=== PATIENT | male | born 1955 | race Caucasian/White ===

== ENCOUNTER → 2016-09-12 | Outpatient (CLI) | payer OTHER ==
--- NOTE | ~2016-09-12 | 2DMMODE ---
[facility] [place] [address] 2 D/M-MODE ECHOCARDIOGRAM Name: EUNTRANG HORACE [id number] Admission: 09/12/16 Attend Phys: Hong Ellison, Discharge: Date of : 59 Date of Service: 09/12/16 1547 Report #: [id number] THIS REPORT FOR: //name// APPROVED REPORT Study performed: 09/12/2016 12:56:23 EXAM: Comprehensive 2D, Doppler, and color-flow Echocardiogram Patient Location: Out-Patient Status: routine Other Information Study Quality: Adequate Indications Atrial Fibrillation Hx: Afib, cardioversion, HTN, HLP 2D Dimensions RVDd: 32.94 mm LVEF(%): 70.99 (>50%) IVSd: 11.03 (7-11mm) LVOT Diam: 21.88 (18-24mm) LVDd: 47.80 mm PWd: 11.37 (7-11mm) Ascending Ao: 35.44 (22-36mm) LVDs: 28.51 (25-40mm) Aortic Root: 38.31 mm De Leon's LVEF: 70.99 % Volumes Left Atrial Volume (Systole) Single Plane 4CH: 45.78 mL Single Plane 2CH: 52.10 mL LA ESV Index: 23.00 mL/m2 Aortic Valve AoV Peak Jas.: 1.38 m/s AO Peak Gr.: 7.70 mmHg LVOT Max P.93 mmHg LVOT Max V: 0.99 m/s SHAYE Vmax: 2.68 cm2 Mitral Valve MV Decel. Time: 189.98 ms MV E Max Jas.: 0.70 m/s IVRT: 64.59 ms Pulmonary Valve [facility] [place] [address] [place] [address] 2 D/M-MODE ECHOCARDIOGRAM Name: EUNTRANG HORACE Room #: REG [facility]#: [id number] Admission: 09/12/16 Attend Phys: Hong Ellison, Discharge: Date of : 59 Date of Service: 09/12/16 1547 Report #: [id number] PV Peak Jas.: 0.94 m/s PV Peak Gr.: 3.57 mmHg Tricuspid Valve TR Peak Jas.: 2.20 m/s RAP Estimate: 5.00 mmHg TR Peak Gr.: 19.46 mmHg PA Pressure: 24.00 mmHg Left Ventricle The left ventricle is normal size. There is normal LV segmental wall motion. There is normal left ventricular wall thickness. The left ventricular systolic function is normal. LVEF is 55-60%. This study is not technically sufficient to allow evaluation of the LV diastolic function due to atrial fibrillation. Right Ventricle The right ventricle is normal size. The right ventricular systolic function is normal. Atria The left atrium size is normal. The right atrium size is normal. Aortic Valve The aortic valve is normal in structure. No aortic regurgitation is present. There is no aortic valvular stenosis. Mitral Valve The mitral valve is normal in structure. Trace mitral regurgitation. Tricuspid Valve The tricuspid valve is normal in structure. There is mild to moderate tricuspid regurgitation. The right atrial pressure is estimated at 5 mmHg. Estimated PAP is 24mmHg. Pulmonic Valve Pulmonic valve is not well visualized. Trace pulmonic regurgitation. Great Vessels Aortic root measures at the upper limits of normal. The ascending aorta is normal in size. IVC is normal in size and collapses >50% with inspiration. Pericardium There is no pericardial effusion. [facility] [address] [place] [address] 2 D/M-MODE ECHOCARDIOGRAM Name: TRAGN HAQN [facility]: [facility] [id number] Admission: 09/12/16 Attend Phys: Hong Ellison, Discharge: Date of : 59 Date of Service: 09/12/16 1547 Report #: [id number] <Conclusion> The left ventricular systolic function is normal. LVEF is 55-60%. There is normal LV segmental wall motion. Structural valve disease was absent. No significant regurgitant or stenotic lesions Pulmonary artery pressure of 25mmHg There is no pericardial effusion. <ELECTRONICALLY SIGNED> By: Tristen Colon MD, [facility] 09/12/16 1547 1547 1547 Tristen Colon MD, [facility] /INF
== END ==
LOC: CV 12:41
DX: I48.91 Unspecified atrial fibrillation (principal); I10 Essential (primary) hypertension; E78.5 Hyperlipidemia, unspecified

== ENCOUNTER → 2018-10-15 | Outpatient (CLI) | payer OTHER ==
[~2018-10-15] MED LIST: FLECAINIDE ACET50 M1 PO; LIPITOR40 MG PO; TOPROL XL25 MG PO; XARELTO15 MG PO; XARELTO20 MG PO
[2018-10-15 07:38] VITALS: BP 152/91
--- NOTE | 2018-10-15 09:19 | TEE ---
[facility] [address] [address] TRANSESOPHAGEAL ECHOCARDIOGRAM Name: TRANG HAQ Room #: REG CL Gabino#: [id number] Admission: 10/15/18 Attend Phys: Tristen Colon, Discharge: Date of : 59 Date of Service: 10/15/18 0919 Report #: [id number] THIS REPORT FOR: //name// APPROVED REPORT Study performed: 10/15/2018 07:47:18 EXAM: Comprehensive 2D, Doppler, and color-flow Echocardiogram Patient Location: Out-Patient Room #: 9 BSA: 2.34 HR: 61 bpm BP: 152/91 mmHg Rhythm: Bradycardia Other Information Study Quality: Good Indications Atrial Fibrillation Echo Enhancing Agent Indication: Rule out Shunt Agent(s) / Amount(s) Used: Agitated Saline 7 cc Procedure After obtaining informed consent, patient underwent transesophageal echo in the [employer]. Type of Sedation : Conscious Sedation Sedation was achieved intravenously with: Versed (3 mg) Fentanyl (100 mcg) Transesophageal probe was inserted and advanced into esophagus without difficulty by Tristen Colon MD. Echo enhancement indication: R/O Septal defect. Echo enhancement agent administered: Agitated Saline The ENOC was performed without complications. Throughout the procedure, the blood pressure, pulse oximetry, cardiac rhythm, and rate were monitored. The patient tolerated the procedure without adverse effects. Recovery from conscious sedation was uneventful and vital signs were stable. Left Ventricle The left ventricle is normal size. There is normal LV segmental wall [facility] [address] [place] [address] TRANSESOPHAGEAL ECHOCARDIOGRAM Name: TRANG HAQ Room #: REG CL Natividad.#: [id number] Admission: 10/15/18 Attend Phys: Tristen Colon, Discharge: Date of : 59 Date of Service: 10/15/18 0919 Report #: [id number] motion. There is normal left ventricular wall thickness. Left ventricular systolic function is normal. The left ventricular ejection fraction is within the normal range. LVEF is 55-60%. Right Ventricle The right ventricle is normal size. The right ventricular systolic function is normal. Atria The left atrium size is mildly enlarged No thrombus is visualized in the left atrium or appendage. No shunting by contrast bubble injection The right atrium size is mildly enlarged Aortic Valve The aortic valve is normal in structure. No aortic regurgitation is present. There is no aortic valvular stenosis. Mitral Valve The mitral valve is normal in structure. Mild mitral regurgitation. No evidence of mitral valve stenosis. Tricuspid Valve The tricuspid valve is normal in structure. Mild tricuspid regurgitation. Pulmonic Valve The pulmonary valve is normal in structure. There is no pulmonic valvular regurgitation. Great Vessels The aortic root is normal in size. The ascending aorta is normal in size. IVC is normal in size and collapses >50% with inspiration. Pericardium There is no pericardial effusion. <Conclusion> Left ventricular systolic function is normal. LVEF is 55-60%. Both atria are mildly enlarged No thrombus is visualized in the left atrium or appendage. No shunting by contrast bubble injection The aortic valve is normal in structure. No aortic regurgitation or stenosis. The mitral valve is normal in structure. Mild mitral [facility] [address] [address] TRANSESOPHAGEAL ECHOCARDIOGRAM Name: TRANG HAQ Room #: REG CL [facility]#: [id number] Admission: 10/15/18 Attend Phys: Tristen Colon, Discharge: Date of : 59 Date of Service: 10/15/18918 Report #: [id number] regurgitation. There is no pericardial effusion. <ELECTRONICALLY SIGNED> By: Tristen Colon MD, [facility] 10/15/18918 8 8 Tristen Colon MD, FAC /INF
[2018-10-15 10:17] LABS: CALCIUM 8.9 mg/dL (8.5-10.1); POTASSIUM 4.6 mmol/L (3.5-5.1)
== END | disposition home or self-care (01) ==
LOC: CATH 06:09 → LABMALL 07:10 → CATH 07:10
PROVIDERS: Internal Medicine Cardiovascular Disease
DX: I34.0 Nonrheumatic mitral (valve) insufficiency (principal); I48.91 Unspecified atrial fibrillation; I10 Essential (primary) hypertension; E78.5 Hyperlipidemia, unspecified; Z79.01 Long term (current) use of anticoagulants; Z98.890 Other specified postprocedural states; Z79.899 Other long term (current) drug therapy

== ENCOUNTER 2018-10-19 00:34 | Observation (INO) | payer OTHER ==
[~2018-10-19] VITALS: Ht 182.9 cm; Wt 113.4 kg
--- NOTE | ~2018-10-19 | P ---
[facility] [place] [place] [address] PROCEDURE REPORT Name: TRANG HAQ [id number] Admission: 10/19/18 ������������������ Attend Phys: Suleiman Medel MD Discharge: ������������������ Date of : 59 Report #: [id number] THIS REPORT FOR: //name// CC: Jose Medel DATE OF SERVICE: 10/19/2018 PREOPERATIVE DIAGNOSIS: Atrial fibrillation. POSTOPERATIVE DIAGNOSIS: Atrial fibrillation. PROCEDURES PERFORMED: 1. Atrial fibrillation ablation, CPT code 60014. 2. 3D mapping, CPT code 82503. 3. Intracardiac echo, CPT code 82696. 4. Arterial line placement, CPT code 53163. ANESTHESIA: The patient underwent general anesthesia with no anesthesia related complications. They could not place an arterial line. Therefore, they asked me to place one. DESCRIPTION OF PROCEDURE: The patient underwent informed consent. We discussed the details of the procedure including the risks, which include but not limited to bleeding, vascular damage, cardiac perforation as well as stroke or ND. He understood these risks and was willing to proceed. The patient was brought to the EP Laboratory in a fasting and sedated state, prepped and draped in a sterile fashion. I obtained access to the right femoral vein x 3, placing an 8, 9 and 7-Maltese short sheath using the modified Seldinger technique. In the left femoral artery, I placed a 5-Maltese short sheath for arterial pressure monitoring. Next, under fluoroscopy, a decapolar catheter was placed easily in the coronary sinus and an ICE catheter was placed in the right atrium. The patient did have somewhat thickened interatrial septum, but there was a nice thinned area along the anterior interatrial septum. The patient was systemically heparinized and then a transseptal was performed using an SL1 sheath and a [place] needle. This was straightforward and then I exchanged over to the cryo sheath. Once in with a cryo sheath, I placed the Biosense Mares decapolar catheter into the left atrium and created a voltage map of the left atrium preablation. Next, I exchanged to the cryoballoon and we started by isolating the left superior pulmonary vein. The left superior pulmonary vein underwent a 4-minute freeze followed by a 300-second freeze. During the second freeze, the vein isolated within 180 seconds, but then reconnected after about a minute. I performed a third freeze that was 180 seconds in duration. The vein isolated within 30 seconds of this freeze. I then turned my attention to the left inferior pulmonary vein. This vein underwent a single 4-minute freeze as [address] [address] PROCEDURE REPORT Name: TRANG AHQN Room #: 202-P [facility] M.RTanya#: [id number] Admission: 10/19/18 ������������������ Attend Phys: Suleiman Medel MD Discharge: ������������������ Date of : 59 Report #: [id number] it isolated within 80 seconds. I then turned my attention to the right-sided veins. During isolation of the right-sided veins, I performed phrenic nerve pacing from the decapolar catheter placed at the subclavian level. I performed a 4-minute freeze in the right superior pulmonary vein and the vein isolated within 80 seconds. I then turned my attention to the right inferior pulmonary vein. This vein underwent a single 4-minute freeze as it isolated within 50 seconds. Post-ablation, I created a detailed 3D voltage map of the left atrium and this showed that we had created a wide circumferential ablation of the pulmonary veins. As such, a basic EP study was performed. Atrial burst pacing was performed and AV block was noted at 360 milliseconds. AV dodie ERP was noted at 320 milliseconds at a [address] cycle length. Next, isoproterenol infusion was started at 2 mcg per minute. AV block was noted to be less than 240 milliseconds, atrial ERP was noted at 220 milliseconds at a [address] cycle length. Aggressive atrial burst pacing and extrastimuli were delivered and there was no induction of any atrial fibrillation, SVT or atrial flutter. As such, the procedure was concluded. The patient received systemic protamine and once ACT was within acceptable range, all catheters and sheaths were pulled and hemostasis was obtained. Ojynjv-gk-aylom suture was performed at the right groin. CONCLUSIONS: 1. Successful AFib ablation with isolation of the 4 pulmonary veins. 2. Normal EP study with no inducible arrhythmias on or off isoproterenol. ��������������������������������������������� ���������������������������������������� By: ��������������������������������������������� 1331 0128 Suleiman Medel MD /nt
[2018-10-19 07:23] VITALS: BP 166/94
[2018-10-19] MEDS ORDERED: LIPITOR40 MG PO (07:26)
[2018-10-19] MEDS ORDERED: FLECAINIDE ACET50 M1 PO (07:27)
[2018-10-19] MEDS ORDERED: TOPROL XL25 MG PO (07:27)
[2018-10-19] MEDS ORDERED: XARELTO15 MG PO (07:28)
[2018-10-19 07:35] LABS: ABSOLUTE NEUTROPHILS 3.5 thou/uL (1.4-8.2); BASOPHILS 0.7 % (0.0-2.0); EOSINOPHILS 2.3 % (0.0-3.0); HEMATOCRIT 48.7 % (42.0-52.0); HEMOGLOBIN 16.3 gm/dL (14.0-18.0); LYMPHOCYTES 29.5 % (24.0-44.0); MCH 30.5 pg (26.0-34.0); MCHC 33.3 g/dL (28.0-37.0); MCV 91.4 fL (80.0-100.0); MONOCYTES 8.1 % (1.0-8.0); PLATELET COUNT 181 thou/uL (150-400); POLYS 59.4 % (36.0-66.0); RBC 5.33 mil/uL (4.50-6.00); RDW 13.4 % (10.5-14.5); WBC 5.9 thou/uL (4.0-11.0)
[2018-10-19 07:43] LABS: CALCIUM 7.8 mg/dL (8.5-10.1); CREATININE 1.2 mg/dL (0.7-1.3); POTASSIUM 3.7 mmol/L (3.5-5.1)
[2018-10-19 07:49] LABS: TOTAL BILIRUBIN 0.8 mg/dL (<0.1-1.0); TOTAL PROTEIN 7.4 g/dL (6.4-8.2)
[2018-10-19 08:06] LABS: APTT 30.1 Seconds (24.5-32.8); PROTIME 9.8 Seconds (9.3-11.4)
--- NOTE | 2018-10-19 16:53 | NUR ---
REPORT GIVEN TO ARISTEO CULVER AT 1623.
--- NOTE | 2018-10-19 18:45 | NUR ---
62YO MALE ADMITTED TO ROOM 202 FROM [employer]NAL [employer]. DRESSING TO R AND L GROIN, CDI, NO SIGN OF HEMATOMA. CATHETER DC'D, TOLERATED PROCEDURE WELL, 20G SL IN R HAND. NO COMPLAINTS OF PAIN, VSS, POST PROCEDURE VITALS TAKEN, WILL CONTINUE TO MONITOR
[2018-10-19 20:57] VITALS: BP 131/72
[2018-10-20 00:48] VITALS: BP 129/71
--- NOTE | 2018-10-20 04:29 | NUR ---
PT POST AFIB ABLATION A0 X 4. OFF BEDREST. ACCESS SITES; LEFT AND RIGHT GROIN CLEAN DRY AND INTACT. NO HEMATOMA NOTED. VITALS STABLE. NO C/O OF NAUSEA, VOMITING OF DIARREA. PT VOIDS IN TOILET. NO C/O URINARY DIFFICULTIES. REMAINS SR ON MONITOR.
[2018-10-20 05:18] VITALS: BP 130/71
[2018-10-20 07:17] VITALS: BP 140/81
[2018-10-20] MEDS ORDERED: XARELTO20 MG PO (08:22)
[2018-10-20] MEDS ORDERED: FLECAINIDE ACET50 M1 PO (08:25)
--- NOTE | 2018-10-20 09:05 | NUR ---
PATIENT CARE WAS ASSUMED AT 0715.PATIENT IS ALERT AND ORIENTED X4.PATIENT RESTING IN BED, WITH SPOUSE AT BEDSIDE.UP AB MARGARITA.TELEM SINUS RHYTHM.HAD AFIB ABLATION 10/19/18.IV IS INTACT AND SALINE LOCKED.CALL LIGHT, PHONE, AND PERSONAL BELONGINGS ARE WITHIN REACH.
[2018-10-20 10:03] VITALS: BP 140/81
--- NOTE | 2018-10-20 11:46 | NUR ---
PATIENT WAS DISCHARGED TO GO HOME WITH SELF CARE.PATIENT WAS GIVEN D/C PAPERWORK, WITH INSTRUCTIONS, AND EDUCATION.PT HAS NO QUESTIONS AT THIS TIME. IV WAS TAKEN OUT CATH INTACT.TRANSPORTATION WAS CALLED.PATIENT WILL BE TAKEN VIA W/C TO [facility].PATIENT WAS ACOMPANIED BY SPOUSE AND TRANSPORTER.
== END 2018-10-20 10:38 | disposition home or self-care (01) ==
LOC: CATH 00:34 → 2N 16:50 → CATH 16:56 → ENTRNSPT 10-20 10:26 → EDTRNSPTSTS 10-20 10:30 → 2N 10-20 10:38
PROVIDERS: ADMIT Internal Medicine Cardiovascular Disease
DX: I48.0 Paroxysmal atrial fibrillation (principal); I10 Essential (primary) hypertension; E78.5 Hyperlipidemia, unspecified
CPT/HCPCS: 62110; 62900; 65020; 65040; 70005

== ENCOUNTER → 2020-04-18 | Outpatient (CLI) | payer OTHER | LOC: SJCVCIMAG 12:04 | PROVIDERS: ATTEND Internal Medicine Cardiovascular Disease | DX: I08.1 Rheumatic disorders of both mitral and tricuspid valves (principal); I48.0 Paroxysmal atrial fibrillation; R53.83 Other fatigue ==

== ENCOUNTER → 2020-04-18 | Outpatient (CLI) | payer OTHER ==
[2020-04-18 15:50] LABS: CALCIUM 9.5 mg/dL (8.5-10.1); POTASSIUM 4.1 mmol/L (3.5-5.1)
== END ==
LOC: LAB 12:30 → CAT 14:16
PROVIDERS: ATTEND Internal Medicine Cardiovascular Disease
DX: Z01.812 Encounter for preprocedural laboratory examination (principal); R06.02 Shortness of breath

== ENCOUNTER → 2020-04-19 | Outpatient (CLI) | payer OTHER | LOC: CAT 14:47 | PROVIDERS: ATTEND Internal Medicine Cardiovascular Disease | DX: R06.02 Shortness of breath (principal); I25.10 Atherosclerotic heart disease of native coronary artery without angina pectoris ==

== ENCOUNTER → 2020-05-16 | Outpatient (CLI) | payer OTHER ==
[~2020-05-16] MED LIST changes: +ASA81BEC PO; +NORVASC 2.5 MG2.5 M1 PO
== END ==
LOC: SJCVCIMAG 08:30
PROVIDERS: ATTEND Internal Medicine Cardiovascular Disease
DX: I08.1 Rheumatic disorders of both mitral and tricuspid valves (principal); I48.91 Unspecified atrial fibrillation

== ENCOUNTER → 2020-05-19 | Outpatient (CLI) | payer OTHER ==
[~2020-05-19] VITALS: Ht 182.9 cm; Wt 113.4 kg
[2020-05-19 07:08] VITALS: BP 117/91
--- NOTE | 2020-05-19 09:05 | TEE ---
[facility] [address] [place] [address] TRANSESOPHAGEAL ECHOCARDIOGRAM Name: TRANG HAQ Room #: REG [facility] Natividad.#: [id number] Admission: 05/19/20 Attend Phys: Florentino Allen MD, Discharge: Date of : 59 Report #: [id number] THIS REPORT FOR: cc: Jose Flor,Florentino Brady MD [facility] ~ APPROVED REPORT Study performed: 05/19/2020 07:56:02 EXAM: Transesophageal Echocardiogram Patient Location: Out-Patient Status: routine BSA: 2.34 HR: 77 bpm BP: 108/82 mmHg Rhythm: Atrial Fibrillation Other Information Study Quality: Good Indications Atrial Fibrillation Cardioversion Procedure After obtaining informed consent, patient underwent transesophageal echo in the [employer]. Type of Sedation : Conscious Sedation Sedation was administered by Deandra ALBERTS. Sedation was achieved intravenously with: Versed (6) Fentanyl (50) Transesophageal probe was inserted and advanced into esophagus without difficulty by Florentino Allen MD [facility]. Echo enhancement indication: R/O Septal defect. Echo enhancement agent administered: Agitated Saline The ENOC was performed without complications. Synchronized Cardioversion attempted: Successful Synchronized Cardioversion acheived with 120Joules, 150 Joules after 2 attempt(s). Rhythm following Synchronized Cardioversion: Normal Sinus Rhythm Throughout the procedure, the blood pressure, pulse oximetry, cardiac rhythm, and rate were monitored. The patient tolerated the procedure without adverse effects. Recovery [facility] [address] [place] [address] TRANSESOPHAGEAL ECHOCARDIOGRAM Name: TRANG HAQ Room #: REG CL ..#: [id number] Admission: 05/19/20 Attend Phys: Florentino Allen, Discharge: Date of : 59 Report #: [id number] from conscious sedation was uneventful and vital signs were stable. Left Ventricle The left ventricle is normal size. There is normal LV segmental wall motion. Mild concentric left ventricular hypertrophy. Left ventricular systolic function is normal. LVEF is 55-60%. Right Ventricle The right ventricle is normal size. The right ventricular systolic function is normal. Atria Biatrial enlargement. No thrombus is visualized in the left atrium or appendage. No shunting noted by contrast bubble injection. Aortic Valve The aortic valve is normal in structure. No aortic regurgitation is present. There is no aortic valvular stenosis. Mitral Valve The mitral valve is normal in structure. Mild mitral regurgitation. Tricuspid Valve The tricuspid valve is normal in structure. Mild to moderate tricuspid regurgitation. Great Vessels The aortic root is normal in size. The ascending aorta is normal in size. Pericardium There is no pericardial effusion. <Conclusion> Consent was obtained Timeout was performed Esophageal probe was advanced without difficulty Normal left ventricle size/mild LVH Ejection fraction 60% Mild biatrial enlargement Left atrial appendage, small, no obvious mass or clot detected Mild central mitral valve insufficiency Mild tricuspid valve insufficiency No pericardial effusion [facility] [address] [place] [address] TRANSESOPHAGEAL ECHOCARDIOGRAM Name: TRANG HAQ Room #: REG CL [facility].#: [id number] Admission: 05/19/20 Attend Phys: Florentino Allen, Discharge: Date of : 59 Report #: [id number] Aorta, no calcification detected Patient was successfully cardioverted to normal sinus rhythm after 120J -150J Patient tolerated the procedure well Twelve-lead ECG pending <ELECTRONICALLY SIGNED> By: Florentino Allen MD, FACC 05/19/20904 4 4 Florentino Allen MD, FACC /INF
--- NOTE | 2020-05-19 15:24 | EKG ---
[place] [address] [facility] [place] [address] ELECTROCARDIOGRAM REPORT Name: EUNTRANGN [facility] #: REG [id number] Admission: 05/19/20 Attend Phys: Florentino Allen MD, Discharge: Date of : 59 Report #: [id number] [facility] Test Date: 2020-05-19 Test Time: 08:37:20 Pat Name: TRANG HAQ Department: Room: Gender: M Master Barber: MATIAS : 1955 Requested By: Florentino Allen Order Number: [id number] MD: Florentino Allen Measurements Intervals Berkley Rate: 60 P: 20 TN: 207 QRS: 38 QRSD: 107 T: 11 QT: 431 QTc: 431 Interpretive Statements Sinus rhythm Low voltage, precordial leads Consider anterior infarct Compared to ECG 08/03/2002 07:34:00 Low QRS voltage now present Myocardial infarct finding now present Electronically Signed On 05-19-2020 15:24:31 BEHAVIORAL GENETICIST by Florentino Allen [email or web address] <ELECTRONICALLY SIGNED> By: Florentino Allen MD, [facility] 05/19/20 1524 6 6 Florentino Allen MD, FACC /EPI
== END | disposition home or self-care (01) ==
LOC: CATH 06:30
PROVIDERS: ATTEND Internal Medicine
DX: I48.91 Unspecified atrial fibrillation (principal); I08.1 Rheumatic disorders of both mitral and tricuspid valves; I10 Essential (primary) hypertension; E78.5 Hyperlipidemia, unspecified; E66.9 Obesity, unspecified; Z98.890 Other specified postprocedural states; Z79.899 Other long term (current) drug therapy; Z68.33 Body mass index [BMI] 33.0-33.9, adult; Z82.49 Family history of ischemic heart disease and other diseases of the circulatory system; Z79.82 Long term (current) use of aspirin; Z20.822 Contact with and (suspected) exposure to COVID-19

== ENCOUNTER → 2020-08-16 | Outpatient (CLI) | payer OTHER | LOC: SJCVCIMAG 06:56 | PROVIDERS: ATTEND Internal Medicine Cardiovascular Disease | DX: I07.1 Rheumatic tricuspid insufficiency (principal); I48.91 Unspecified atrial fibrillation ==

== ENCOUNTER 2021-04-11 06:42 | Observation (INO) | payer OTHER ==
[~2021-04-11] VITALS: Ht 154.9 cm; Wt 100.7 kg
[2021-04-11 07:34] VITALS: BP 127/99
[2021-04-11] MEDS ORDERED: AMIODARONE HCL400 MG PO (07:44)
[2021-04-11 08:01] LABS: ABSOLUTE NEUTROPHILS 4.5 thou/uL (1.4-8.2); BASOPHILS 0.8 % (0.0-2.0); EOSINOPHILS 1.5 % (0.0-3.0); HEMATOCRIT 46.6 % (42.0-52.0); HEMOGLOBIN 15.5 gm/dL (14.0-18.0); LYMPHOCYTES 21.6 % (24.0-44.0); MCH 30.5 pg (26.0-34.0); MCHC 33.2 g/dL (28.0-37.0); MCV 91.8 fL (80.0-100.0); MONOCYTES 8.7 % (1.0-8.0); PLATELET COUNT 194 thou/uL (150-400); POLYS 67.4 % (36.0-66.0); RBC 5.08 mil/uL (4.50-6.00); RDW 13.6 % (10.5-14.5); WBC 6.7 thou/uL (4.0-11.0)
[2021-04-11 08:03] LABS: CALCIUM 8.7 mg/dL (8.5-10.1); CREATININE 1.1 mg/dL (0.7-1.3); POTASSIUM 4.1 mmol/L (3.5-5.1)
[2021-04-11 08:09] LABS: ALBUMIN 3.9 g/dL (3.4-5.0); TOTAL BILIRUBIN 0.9 mg/dL (0.2-1.0); TOTAL PROTEIN 6.9 g/dL (6.4-8.2)
[2021-04-11 08:42] VITALS: BP 135/63
[2021-04-11 08:49] LABS: APTT 27.3 Seconds (24.5-32.8); INR 0.9; PROTIME 9.9 Seconds (9.3-11.4)
--- NOTE | 2021-04-11 12:46 | NUR ---
RETURNED TO RM 2 FROM PACU. AWAKE AND ALERT. DRESSINGS C/D/I.
[2021-04-11 14:40] VITALS: BP 117/70
--- NOTE | 2021-04-11 16:48 | NUR ---
PT TO THE UNIT POST ABLATION - ORIENTED TO ROOM AND BEDSPACE - VSS AND GROIN SITE STABLE POST PROCEDURE - PT ABLE TO MOVE ABOUT AND GROIN SITE REMAINS STABLE - SAMANTHA DIET AND FLUIDS. NO CO'S OF PAIN OR NAUSEA. ASSESSMENT CHARTED - MEDS PER JUN - NO CO'S AT THE PRESENT TIME.
[2021-04-11 20:45] VITALS: BP 121/66
[2021-04-12 00:45] VITALS: BP 123/70
--- NOTE | 2021-04-12 03:04 | NUR ---
ASSESSMENTS CHARTED, MEDS CHARTED GIVEN. PATIENT OFF BEDREST AT START OF SHIFT FROM ABLATION DURING DAY SHIFT. RIGHT AND LEFT GROINS ARE SOFT DRY AND INTACT. PATIENT FEELS THE DIFFERENCE ALREADY. PLAN OF CARE IS TO GO HOME IN AM.
[2021-04-12 04:45] VITALS: BP 117/63
[2021-04-12 09:12] VITALS: BP 120/77
[2021-04-12 09:44] VITALS: BP 120/77
--- NOTE | 2021-04-12 11:38 | NUR ---
Pt was discharged at 1030am. Pt was A&0x4, VS stable and afebrile. Pt was given discharge education on new meds, activity limitations r/t to procedure and f/u appointments. Pt stated understanding. No complaints of pain. No current concerns.
--- NOTE | 2021-04-25 08:47 | P ---
[facility] [place] [address] PROCEDURE REPORT Name: TRANG HAQ Room #: 211-P [facility] Danica Lloyd#: [id number] Admission: 04/11/21 Attend Phys: Suleiman Medel MD Discharge: 04/12/21 Date of : 59 Report #: [id number] THIS REPORT FOR: cc: Jose Flor,Suleiman Luque MD ~ PREOPERATIVE DIAGNOSIS: Atrial fibrillation. POSTOPERATIVE DIAGNOSIS: Atrial fibrillation. PROCEDURES PERFORMED: 1. Atrial fibrillation ablation, CPT code 14979. 2. 3D mapping, CPT code 79819. 3. Intracardiac echo, CPT code 89789. 4. Focal ablation, CPT code 45935. HISTORY: The patient is a 65-year-old with history of AFib, here for ablation. DESCRIPTION OF PROCEDURE: The patient was placed under general anesthesia. I then obtained access to the right femoral vein x2, placing an 8 and 9-Cambodian short sheath in the left femoral vein and placed a 7-Cambodian short sheath. Under fluoroscopy, a decapolar catheter was placed in the coronary sinus for left atrial pacing and recording. An ICE catheter was placed in the right atrium. The patient was systemically heparinized and transseptal was done using an Agilis sheath and a [place] needle, which was straightforward. I then placed the PentaRay into the left atrium and a 3D geometry of the left atrium was created. This showed that the pulmonary veins appeared to have remained isolated from the prior ablation. Therefore, I decided to perform posterior wall isolation. Ablation was performed at 40 moore and the posterior wall was successfully isolated. The esophageal temperatures were closely monitored and were within normal limits. Next, I decided to perform a mitral annular line ablation. Line was performed from the left inferior pulmonary vein to the mitral annulus until there was evidence of block. The patient then underwent a 200 joule synchronized cardioversion with mu-ism of sinus rhythm. Atrial flutter ablation. Next, the patient was prepped for right-sided atrial flutter ablation. Preablation, the transisthmus conduction time was 65 milliseconds. Post-ablation, it was 175 milliseconds. Ablation was performed at 40 moore. Continuous drag lesion was placed at 6 o'clock along the cavotricuspid isthmus. There was then evidence of bidirectional block. Post-ablation, the patient was in sinus rhythm. There were no procedural complications. No evidence of pericardial effusion. As such, catheters and sheaths were pulled and hemostasis obtained after the patient received systemic [address] [address] PROCEDURE REPORT Name: TRANG HAQ Room #: 211-P [facility] Danica Lloyd#: [id number] Admission: 04/11/21 Attend Phys: Suleiman Medel MD Discharge: 04/12/21 Date of : 59 Report #: [id number] protamine. CONCLUSION: 1. Successful AFib ablation. 2. Successful posterior wall isolation. 3. Successful mitral annular line creation. 4. Successful cavotricuspid isthmus dependent flutter ablation with evidence of bidirectional block. <ELECTRONICALLY SIGNED> By: Suleiman Medel MD 04/25/21 0847 0958 1945 Suleiman Medel MD /nt
== END 2021-04-12 10:49 | disposition home or self-care (01) ==
LOC: CATH 06:42 → 2N 14:40 → CATH 15:57 → 2N 17:52
PROVIDERS: ADMIT Internal Medicine Cardiovascular Disease; ATTEND Internal Medicine Cardiovascular Disease
DX: I48.91 Unspecified atrial fibrillation (principal); Z20.822 Contact with and (suspected) exposure to COVID-19; I48.92 Unspecified atrial flutter; Z79.82 Long term (current) use of aspirin; Z79.899 Other long term (current) drug therapy
CPT/HCPCS: 62110; 62900; 65020; 65131; 70005